=== PATIENT | female | born 1965 | race Caucasian/White ===

== ENCOUNTER 2017-05-25 20:41 | Emergency (ER) | payer MEDICAID ==
[~2017-05-25] VITALS: Ht 149.9 cm; Wt 74.8 kg
[2017-05-25 21:17] VITALS: BP 133/78
[2017-05-25] MEDS ORDERED: METOCLOPRAMIDE HCL 10 MG/2 ML VIAL IM STA (22:11)
[2017-05-25] MEDS ORDERED: METOCLOPRAMIDE HCL 10 MG/2 ML VIAL ONE (22:18)
== END 2017-05-25 23:41 | disposition home or self-care (01) ==
LOC: ER 20:43
DX: R51 Headache (principal)
CPT/HCPCS: 70450; 96372; 99284; A4606; J2765; Z7610

== ENCOUNTER 2019-10-28 19:40 | Emergency (ER) | payer MEDICAID ==
[~2019-10-28] VITALS: Ht 139.7 cm; Wt 58.1 kg
--- NOTE | 2019-10-28 19:50 | NUR ---
PT BIBSELF C/O RECTAL PAIN X1 DAY. PT STATES SHE USED OTC MEDICATION WITH MINIMAL RELIEF OF PAIN. PT AAOX4. RESPIRATIONS EVEN AND UNLABORED. NO ACUTE DISTRESS NOTED AT THIS TIME. WAITING MD SINGH, WILL CONT TO MONITOR
--- NOTE | 2019-10-28 21:04 | NUR ---
CARROLL, HOUSE REPAIRER AT BEDSIDE FOR EVALUATION
--- NOTE | 2019-10-28 21:15 | NUR ---
Patient discharged to home in stable condition. Written and verbal after care instructions given. Patient verbalizes understanding of instruction.Pt ambulatory with a steady gait
[2019-10-28 21:18] VITALS: BP 124/88
== END 2019-10-28 21:18 | disposition home or self-care (01) ==
LOC: ER 19:40
DX: K64.4 Residual hemorrhoidal skin tags (principal)

== ENCOUNTER 2019-11-20 10:09 | Emergency (ER) | payer MEDICAID ==
[~2019-11-20] VITALS: Ht 149.9 cm; Wt 75.3 kg
[2019-11-20 10:16] VITALS: BP 121/74
--- NOTE | 2019-11-20 10:26 | NUR ---
Patient discharged to home in stable condition. Written and verbal after care instructions given. Patient verbalizes understanding of instruction.
== END 2019-11-20 10:27 | disposition home or self-care (01) ==
LOC: ER 10:12
DX: H66.93 Otitis media, unspecified, bilateral (principal)

== ENCOUNTER 2019-11-26 10:21 | Emergency (ER) | payer MEDICAID ==
[~2019-11-26] VITALS: Ht 134.6 cm; Wt 73.5 kg
[2019-11-26 10:35] VITALS: BP 150/72
[2019-11-26] MEDS ORDERED: LORAZEPAM 0.5 MG TABLET PO ONE (11:00)
[2019-11-26] MEDS ORDERED: LORAZEPAM 0.5 MG TABLET ONE (11:03)
== END 2019-11-26 11:16 | disposition home or self-care (01) ==
LOC: ER 10:25
DX: F41.9 Anxiety disorder, unspecified (principal); G47.00 Insomnia, unspecified; I10 Essential (primary) hypertension

== ENCOUNTER 2020-01-13 17:03 | Emergency (ER) | payer MEDICAID ==
[~2020-01-13] VITALS: Ht 149.9 cm; Wt 68.0 kg
--- NOTE | 2020-01-13 17:15 | NUR ---
EPIGASTRIC PAIN WITH RUQ ABD PAIN X 4 DAYS, RADIATING TO THE BACK THIS AM C/O NAUSEA, DENIES VOMITING OR CHANGES IN BOWEL PATTERN. PATIENT A/OX4, BREATHING EVEN AND UNLABORED, NO SOB NOTED. NEEDS ATTENDED. JOHANNA SUE AT BEDSIDE FOR EVAL.
[2020-01-13] MEDS ORDERED: IV NS 0.9% 1,000 ML BAG IV ONE (17:30)
[2020-01-13] MEDS ORDERED: ONDANSETRON HCL/PF - ER 4 MG/2 ML VIAL IV ONE (17:30)
[2020-01-13] MEDS ORDERED: ACETAMINOPHEN ES 500 MG TABLET PO ONE (17:30)
[2020-01-13] MEDS ORDERED: MORPHINE SULFATE INJ 2 MG/ML DISP.SYRIN IV ONE (17:30)
[2020-01-13] MEDS ORDERED: KETOROLAC TROMETHAMINE INJ 30 MG/ML VIAL IV ONE (17:30)
[2020-01-13] MEDS ORDERED: MAG HYDROX/AL HYDROX/SIMETH 30 ML UDC PO ONE (17:30)
[2020-01-13] MEDS ORDERED: LIDOCAINE VISCOUS 2% UD 15 ML UDC MM ONE (17:30)
[2020-01-13] MEDS ORDERED: ONDANSETRON HCL/PF 4 MG/2 ML VIAL ONE (17:35)
[2020-01-13] MEDS ORDERED: KETOROLAC TROMETHAMINE 15 MG/ML VIAL ONE (17:35)
[2020-01-13] MEDS ORDERED: ACETAMINOPHEN ES 500 MG TABLET ONE (17:35)
[2020-01-13] MEDS ORDERED: LIDOCAINE VISCOUS 2% UD 15 ML UDC ONE (17:35)
[2020-01-13] MEDS ORDERED: MORPHINE SULFATE INJ 2 MG/ML DISP.SYRIN ONE (17:35)
[2020-01-13] MEDS ORDERED: MAG HYDROX/AL HYDROX/SIMETH 30 ML UDC ONE (17:35)
[2020-01-13 17:49] LABS: CALCIUM, SERUM 8.7 mg/dL (8.5-10.1); CREATININE 0.5 mg/dL (0.6-1.3); POTASSIUM 4.1 mmol/L (3.5-5.1)
[2020-01-13 17:54] LABS: ALBUMIN 3.6 g/dL (3.4-5.0); BILIRUBIN,DIRECT 0.1 mg/dL (0.0-0.2); BILIRUBIN,TOTAL 0.3 mg/dL (0.2-1.0); TOTAL PROTEIN, SERUM 7.2 g/dL (6.4-8.2)
[2020-01-13 18:47] LABS: BILIRUBIN,URINE NEGATIVE (NEGATIVE); BLOOD, URINE NEGATIVE Ery/uL (NEGATIVE); COLOR,URINE YELLOW (YELLOW); LEUKOCYTE ESTERASE ,URINE TRACE (NEGATIVE); NITRITE, URINE NEGATIVE (NEGATIVE); PROTEIN,URINE NEGATIVE (NEGATIVE); UGLUCOSE NEGATIVE (NEGATIVE); UROBILINOGEN,URINE 0.2 EU/dL (0.2)
--- NOTE | 2020-01-13 19:15 | NUR ---
CALLED [facility] TO FOLLOW UP REGARDING PENDING LAB RESULTS.
[2020-01-13 19:19] LABS: BACTERIA,URINE 1+ /HPF (None Seen); RBC,URINE 0-2 /HPF (0-2); SQUAMOUS EPITHELIAL CELL,UR Few /HPF (None Seen)
--- NOTE | 2020-01-13 20:15 | NUR ---
called lab to follow up with CBC
[2020-01-13 20:24] LABS: BASOPHILS % (AUTO) 0.6 % (0.0-2.0); EOSINOPHILS % (AUTO) 1.8 % (0.0-6.0); HEMATOCRIT 41 % (33-45); HEMOGLOBIN 13.7 g/dL (11.5-14.8); LYMPHOCYTES # (AUTO) 3.5 /CMM (0.8-4.8); LYMPHOCYTES % (AUTO) 44.1 % (20.0-44.0); MEAN CORPUSCULAR HGB CONC 33 g/dl (31.0-36.0); MEAN CORPUSCULAR VOLUME 92 fL (82-100); MONOCYTES # (AUTO) 0.7 /CMM (0.1-1.30); MONOCYTES % (AUTO) 9.3 % (2.0-12.0); NEUTROPHILS # (AUTO) 3.6 /CMM (1.8-8.9); NEUTROPHILS % (AUTO) 44.2 % (43.0-81.0); PLATELET COUNT (AUTO) 278 /CMM (150-450); RED BLOOD CELL COUNT(AUTO) 4.51 MIL/uL (4.0-5.2)
[2020-01-13 20:50] VITALS: BP 122/75
--- NOTE | 2020-01-13 20:50 | NUR ---
IV removed. Catheter intact and site benign. Pressure and 4x4 applied to site. No bleeding noted.
--- NOTE | 2020-01-13 20:50 | NUR ---
Patient discharged to home in stable condition. Written and verbal after care instructions given. Patient verbalizes understanding of instruction.
== END 2020-01-13 20:51 | disposition home or self-care (01) ==
LOC: ER 17:06
DX: R10.13 Epigastric pain (principal); K21.9 Gastro-esophageal reflux disease without esophagitis; R11.0 Nausea; E66.8 Other obesity; Z68.30 Body mass index [BMI] 30.0-30.9, adult
CPT/HCPCS: 36415; 80048; 80076; 81001; 83690; 85025; 96361; 96374; 96375; 99284; J1885; J2405 ×2; J7030; J2270